=== PATIENT | male | born 1965 | race Asian ===

== ENCOUNTER 2022-07-22 08:01 | Emergency (ER) | payer OTHER ==
[~2022-07-22] VITALS: Ht 180.3 cm; Wt 104.3 kg
[2022-07-22 08:05] VITALS: TEMP 97.7
[2022-07-22 08:33] LABS: PLATELET COUNT 222 K/uL (142-355)
[2022-07-22 08:40] LABS: POTASSIUM 3.5 mmol/L (3.6-5.2)
[2022-07-22 10:15] VITALS: BP 133/83
== END 2022-07-22 10:15 | disposition home or self-care (01) ==
LOC: ED 08:01
PROVIDERS: Emergency Medicine
DX: M79.18 Myalgia, other site (principal)
CPT/HCPCS: 80053; 82550; 84484; 85027; 85730; 93005; 96372; 99283; J1885; J2360